=== PATIENT | female | born 1980 ===

== ENCOUNTER 2019-03-20 20:27 | Emergency (ER) | payer OTHER ==
[~2019-03-20] VITALS: Ht 157.5 cm; Wt 59.1 kg
[2019-03-20] MEDS ORDERED: PERMETHRIN 1% 60 ML LOTION TP ONE (21:45)
[2019-03-20 22:47] VITALS: BP 132/81
== END 2019-03-20 22:48 | disposition home or self-care (01) ==
LOC: EMS 20:31
DX: B86 Scabies (principal); F19.90 Other psychoactive substance use, unspecified, uncomplicated